=== PATIENT | male | born 1975 | race Caucasian/White ===

== ENCOUNTER 2021-09-10 16:59 | Inpatient (IN) | payer SELFPAY ==
[2021-09-10] MEDS ORDERED: Lorazepam 2 MG/ML VIAL ONE (17:06)
[2021-09-10] MEDS ORDERED: Diltiazem 125 MG/25 ML ONE ×2 (17:08→17:10)
[2021-09-10 17:21] LABS: #Eosinphils 0.1 thou/uL (0.0-0.7); #Lymphocytes 1.2 thou/uL (1.20-3.40); #Monocytes 0.4 thou/uL (0.11-0.59); %Basophils 0.4 % (0.0-1.0); %Eosinophils 1.3 % (0.0-10.0); %Lymphocytes 18.1 % (21.0-51.0); %Monocytes 5.5 % (0.0-10.0); %Neutrophils 74.8 % (42.0-75.0); Hemoglobin 16.6 g/dL (14.0-18.0); Mean Corpuscular HGB CONC 34.5 g/dL (32.0-36.0); Mean Corpuscular Hemoglobin 31.9 pg (27.0-31.0); Mean Corpuscular Volume 92.4 fL (78.0-98.0); RBC Distribution Width 12.1 % (11.5-14.5); Red Blood Cell (RBC) Count 5.21 mill/uL (4.70-6.10); White Blood Cell (WBC) Count 6.7 thou/uL (4.8-10.8)
[2021-09-10 17:34] LABS: Mean Platelet Volume 7.4 fL (7.4-10.4); Platelet Count 88 thou/uL (130-400); Platelet Morphology Comment Appears Decreased; RBC Morphology Normal
[2021-09-10 17:40] LABS: ALT (SGPT) 51 U/L (8-55); AST (SGOT) 47 U/L (5-34); Albumin 4.6 g/dL (3.5-5.0); Alkaline Phosphatase 60 U/L (40-110); Anion Gap 22 mmol/L (10-20); BUN (Urea Nitrogen) 11 mg/dL (8.9-20.6); Bilirubin, Total 1.2 mg/dL (0.2-1.2); Calc. Creatinine Clearance 0 mL/min (70-130); Calcium 10.1 mg/dL (7.8-10.44); Carbon Dioxide 21 mmol/L (22-29); Chloride 97 mmol/L (98-107); Globulin 3.7 g/dL (2.4-3.5); Glucose 138 mg/dL (70-105); Lipase 55 U/L (8-78); Magnesium 1.6 mg/dL (1.6-2.6); Potassium 3.8 mmol/L (3.5-5.1); Protein, Total 8.3 g/dL (6.0-8.3); Sodium 136 mmol/L (136-145)
[2021-09-10] MEDS ORDERED: Magnesium 2 GM/50 ML BAG (IN WATER) ONE (18:25)
[2021-09-10] MEDS ORDERED: Ketorolac Tromethamine 30 MG/ML VIAL ONE (18:25)
[2021-09-10] MEDS ORDERED: chlordiazePOXIDE HCl 25 MG CAP PO SCH (19:45)
[2021-09-10] MEDS ORDERED: Thiamine HCl 200 MG/2 ML VIAL SLOW IVP SCH (20:15)
[2021-09-10] MEDS ORDERED: Folic Acid 1 MG, Multivitamins, Adult 10 ML in Dextrose 5 %-0.45 % NaCl 1,000 ML IV SCH (20:15)
[2021-09-10] MEDS ORDERED: Lorazepam 1 MG TAB PO PRN (21:11)
[2021-09-10] MEDS ORDERED: Lorazepam 2 MG/ML VIAL IM PRN (21:11)
[2021-09-10] MEDS ORDERED: Electrolyte Replacement Protocol 1 EACH FS SCH (21:15)
[2021-09-10] MEDS: Lorazepam 1 MG TAB PO SCH (21:30)
[2021-09-10 21:43] LABS: Hemoglobin A1c 4.8 % (4.0-6.0)
[2021-09-10 21:47] LABS: Lactic Acid 1.4 mmol/L (0.5-2.2)
[2021-09-10 21:54] LABS: Alcohol Less than 10 mg/dL (Less than 10); Anion Gap 17 mmol/L (10-20); BUN (Urea Nitrogen) 10 mg/dL (8.9-20.6); Calc. Creatinine Clearance 0 mL/min (70-130); Calcium 9.1 mg/dL (7.8-10.44); Carbon Dioxide 23 mmol/L (22-29); Chloride 99 mmol/L (98-107); Glucose 153 mg/dL (70-105); Potassium 3.5 mmol/L (3.5-5.1); Sodium 135 mmol/L (136-145)
[2021-09-10 21:56] LABS: Bilirubin, Direct 0.4 mg/dL (0.1-0.3); Phosphorus 2.4 mg/dL (2.3-4.7)
[2021-09-11] MEDS ORDERED: Potassium Chloride 20 MEQ TAB PO SCH (00:30)
[2021-09-11] MEDS ORDERED: chlordiazePOXIDE HCl 25 MG CAP PO SCH (01:30)
[2021-09-11] MEDS: Lorazepam 1 MG TAB PO SCH ×4 (03:37→21:05)
[2021-09-11 06:27] VITALS: BMI 27.9
[2021-09-11] MEDS: Magnesium 2 GM/50 ML 2 GM in Premix Bag 1 BAG IVPB SCH ×2 (07:39→08:35)
[2021-09-11] MEDS ORDERED: Diltiazem HCl 125 MG, Admixture Fee 1 EACH in Sodium Chloride 0.9% 100 ML IVPB SCH (07:47)
[2021-09-11] MEDS: Thiamine 100 MG TAB PO SCH (08:32)
[2021-09-11] MEDS: Folic Acid 1 MG TAB PO SCH (08:32)
[2021-09-11] MEDS: Multivit, Therapeutic 1 TAB PO SCH (08:32)
[2021-09-11] MEDS ORDERED: FLU VACC QS2021-22(6MOS UP)/PF 60 MCG/0.5 ML SYRINGE IM ONE (09:00)
[2021-09-11 15:05] LABS: Bacteria/HPF None Seen HPF (None Seen); Bilirubin Negative (Negative); Blood, Urine Negative (Negative); Clarity Clear (Clear); Glucose, Urine (Dipstick) Normal (Negative); Ketone, Urine Negative (Negative); Leukocyte Negative Leu/uL (Negative); Nitrite Negative (Negative); Protein, Urine (Dipstick) Negative (Neg-Trace); RBC/HPF 0-3 HPF (0-3); Specific Gravity, Urine 1.011 (1.002-1.036); Squamous Epithelial None Seen HPF (0-3); Urobilinogen Normal mg/dL (Less than 2); WBC/HPF 0-3 HPF (0-3); pH, Urine 6.5 (5.0-9.0)
[2021-09-11 15:07] LABS: Urine Culture Reflex No No
[2021-09-11 15:12] LABS: Amphetamine Not Detected (NotDetected); Barbiturates Screen Not Detected (NotDetected); Benzodiazepine Screen Detected (NotDetected); Cocaine Metabolite Screen Not Detected (NotDetected); Methadone Not Detected (NotDetected); Methamphetamine Not Detected (NotDetected); Opiate Screen Not Detected (NotDetected); Oxycodone Screen Not Detected (NotDetected); Phencyclidine (PCP) Not Detected (NotDetected); THC/Cannabinoid Screen Not Detected (NotDetected); Tricyclic Screen Not Detected (NotDetected)
[2021-09-11 18:51] LABS: SARS-CoV-2 PCR by NAA DETECTED (NotDetected)
[2021-09-11] MEDS: Enoxaparin Sodium 100 MG/ML SYRINGE SC SCH (21:05)
[2021-09-11] MEDS ORDERED: Lorazepam 1 MG TAB PO PRN (21:12)
[2021-09-12] MEDS: Lorazepam 1 MG TAB PO SCH ×2 (04:41→11:54)
[2021-09-12 05:51] LABS: Anion Gap 11 mmol/L (10-20); BUN (Urea Nitrogen) 7 mg/dL (8.9-20.6); Calc. Creatinine Clearance 175 mL/min (70-130); Calcium 8.3 mg/dL (7.8-10.44); Carbon Dioxide 28 mmol/L (22-29); Chloride 101 mmol/L (98-107); Glucose 98 mg/dL (70-105); Magnesium 2.2 mg/dL (1.6-2.6); Potassium 3.6 mmol/L (3.5-5.1); Sodium 136 mmol/L (136-145)
[2021-09-12 05:54] LABS: #Eosinphils 0.2 thou/uL (0.0-0.7); #Lymphocytes 1.4 thou/uL (1.20-3.40); #Monocytes 0.5 thou/uL (0.11-0.59); #Neutrophils 4.1 thou/uL (1.40-6.50); %Basophils 0.3 % (0.0-1.0); %Eosinophils 3.2 % (0.0-10.0); %Lymphocytes 22.5 % (21.0-51.0); %Monocytes 7.9 % (0.0-10.0); Hemoglobin 15.2 g/dL (14.0-18.0); Mean Corpuscular HGB CONC 35.5 g/dL (32.0-36.0); Mean Corpuscular Hemoglobin 33.2 pg (27.0-31.0); Mean Corpuscular Volume 93.5 fL (78.0-98.0); Mean Platelet Volume 7.7 fL (7.4-10.4); Platelet Count 65 thou/uL (130-400); Red Blood Cell (RBC) Count 4.57 mill/uL (4.70-6.10); White Blood Cell (WBC) Count 6.2 thou/uL (4.8-10.8)
[2021-09-12] MEDS: Enoxaparin Sodium 100 MG/ML SYRINGE SC SCH (09:05)
[2021-09-12] MEDS: Folic Acid 1 MG TAB PO SCH (09:05)
[2021-09-12] MEDS: Thiamine 100 MG TAB PO SCH (09:06)
[2021-09-12] MEDS: Multivit, Therapeutic 1 TAB PO SCH (09:06)
[2021-09-12] MEDS: Apixaban 5 MG TAB PO SCH (21:04)
[2021-09-12] MEDS ORDERED: Lorazepam 1 MG TAB PO PRN (21:12)
[2021-09-12] MEDS ORDERED: Lorazepam 0.5 MG TAB PO SCH (21:15)
[2021-09-13 05:46] LABS: #Eosinphils 0.2 thou/uL (0.0-0.7); #Lymphocytes 1.7 thou/uL (1.20-3.40); #Monocytes 0.8 thou/uL (0.11-0.59); #Neutrophils 3.5 thou/uL (1.40-6.50); %Basophils 0.2 % (0.0-1.0); %Eosinophils 3.7 % (0.0-10.0); %Lymphocytes 26.9 % (21.0-51.0); %Monocytes 12.4 % (0.0-10.0); %Neutrophils 56.8 % (42.0-75.0); Hemoglobin 15.4 g/dL (14.0-18.0); Mean Corpuscular HGB CONC 34.9 g/dL (32.0-36.0); Mean Corpuscular Hemoglobin 32.7 pg (27.0-31.0); Mean Corpuscular Volume 93.9 fL (78.0-98.0); Mean Platelet Volume 8.2 fL (7.4-10.4); Platelet Count 66 thou/uL (130-400); White Blood Cell (WBC) Count 6.2 thou/uL (4.8-10.8)
[2021-09-13 05:57] LABS: Anion Gap 13 mmol/L (10-20); BUN (Urea Nitrogen) 11 mg/dL (8.9-20.6); Calc. Creatinine Clearance 180 mL/min (70-130); Carbon Dioxide 26 mmol/L (22-29); Chloride 102 mmol/L (98-107); Glucose 101 mg/dL (70-105); Potassium 3.9 mmol/L (3.5-5.1); Sodium 137 mmol/L (136-145)
[2021-09-13] MEDS: Folic Acid 1 MG TAB PO SCH (08:24)
[2021-09-13] MEDS: Multivit, Therapeutic 1 TAB PO SCH (08:24)
[2021-09-13] MEDS: Thiamine 100 MG TAB PO SCH (08:24)
[2021-09-13] MEDS: Apixaban 5 MG TAB PO SCH (08:25)
[2021-09-13 15:26] VITALS: TEMP 98
[2021-09-13 17:41] VITALS: BP 136/93
[2021-09-13] MEDS ORDERED: Lorazepam 0.5 MG TAB PO PRN (21:12)
== END 2021-09-13 18:37 | disposition home or self-care (01) | DRG 896 ==
LOC: ERS 16:59 → ERHOLD 19:53 → CCU 21:27 → 2SW 09-11 21:52 → 2SE 09-12 08:10 → 2SW 09-12 17:41
PROVIDERS: ADMIT Student in an Organized Health Care Education/Training Program; ATTEND Hospitalist
PROC: 8E0ZXY6 Isolation (ICD-10-PCS; principal; 2021-09-10)
DX: F10.239 Alcohol dependence with withdrawal, unspecified (principal); U07.1 COVID-19; J45.909 Unspecified asthma, uncomplicated; I10 Essential (primary) hypertension; D69.6 Thrombocytopenia, unspecified; I48.0 Paroxysmal atrial fibrillation; F32.A Depression, unspecified
CPT/HCPCS: 36415; 70450; 71045; 80048; 80053; 80306; 80307; 81001; 82010; 82248; 83036; 83605; 83690; 83735; 84100; 84484; 85025; 93005; 93306; 96365; 96366; 96367; 96375; J1650; J1885; J2060; J3411; J3475; J3490; J7042; U0003; U0005